=== PATIENT | male | born 1960 | race Caucasian/White ===

== ENCOUNTER → 2016-08-15 | Outpatient (CLI) | payer BC ==
--- NOTE | 2016-08-15 20:50 | CONS ---
DATE OF CONSULTATION: 08/15/2016 This patient is a 56-year-old gentleman who has been evaluated in the sleep center for possible obstructive sleep apnea-hypopnea syndrome. HISTORY OF PRESENT ILLNESS/SLEEP-WAKE EVALUATION: Patient's usual sleep schedule on working days is from around 9:30 p.m. until 5 a.m. and on weekends from around 10:30 p.m. until 6 a.m. No problem with falling asleep. No TV in bedroom. Patient usually sleeps on his back or side position with loud snoring and witnessed episodes of stopped breathing by his . He wakes up from sleep up to 4 times. No history of nocturia. In the morning patient wakes up tired, falling asleep during the day. [place] Sleepiness Scale is in extremely high range at 21. He has a history of irritability during the day. Past medical history is positive for back problems and shoulder pain. PAST SURGICAL HISTORY: None. MEDICATIONS: Ibuprofen over the counter. SOCIAL HISTORY: Positive for smoking for about 20 pack-years; quit 23 years ago. Alcohol consumption previously. History of overusing alcohol; quit about 5 years ago. REVIEW OF SYSTEMS: Multiple awakenings from sleep, significant tiredness and sleepiness during the day. No fevers. No double vision. No recent chest pain. No shortness of breath. No abdominal pain. No bleeding episodes. No blood in urine. No seizure episodes. FAMILY HISTORY: Positive for snoring, cancer. PHYSICAL EXAMINATION: GENERAL: A pleasant gentleman without distress. VITAL SIGNS: BP 133/86, HR 80, RR 16. Height 66 inches. Weight 185.4 pounds. BMI 29.8. Neck 16-1/2 inches in circumference. Temperature 98.7. Oxygen saturation at room air 97%. HEENT: PERRLA, EOMI. Evaluation of oropharynx showed tongue protrudes midline; extremely low position of soft palate. NECK: Supple. No JVD. Thyroid is not palpable. LUNGS: Clear to percussion and to auscultation. Good air exchange. No wheezing or rhonchi. HEART: S1, S2 regular. No murmurs, gallops or rubs. ABDOMEN: Obese. EXTREMITIES: No clubbing or cyanosis. TIMING ADJUSTER: Awake, alert, and oriented x3. Cranial nerves 2 to 7 intact. There is no fasciculation or atrophy noted. No focal deficits observed. IMPRESSION: 1. Snoring, witnessed episodes of stopped breathing during sleep, low position of soft palate, excessive daytime sleepiness; obstructive sleep apnea-hypopnea syndrome. 2. Overweight, close to obesity; body mass index 29.8. 3. Significant sleepiness during the day. [place] Sleepiness Scale increased to 21. 4. Shoulder problems. 5. Back pain. PLAN: 1. Home sleep apnea test for evaluation of patient's breathing during sleep. 2. CPAP/BiPAP titration if sleep study confirms obstructive sleep apnea-hypopnea syndrome. 3. Preferable position during sleep on the side. 4. No driving if patient feels any sleepiness. Patient is aware of civil and criminal liability for unsafe driving. 5. I will see patient for follow-up visit to explain results of the testing and following plan. Thank you very much for referring this patient for consultation. Sincerely, Avery Small MD, PhD, FAASM. Diplomat of [place] [employer], Sleep Medicine Board by [place] [employer] [place] [employer]omass Facilitator of [facility] [place]
== END | disposition home or self-care (01) ==
LOC: SLEEP 16:16
PROVIDERS: ATTEND Internal Medicine
DX: G47.33 Obstructive sleep apnea (adult) (pediatric) (principal); E66.9 Obesity, unspecified; Z68.29 Body mass index [BMI] 29.0-29.9, adult; Z87.891 Personal history of nicotine dependence
CPT/HCPCS: 99211

== ENCOUNTER → 2016-10-24 | Outpatient (CLI) | payer BC ==
--- NOTE | 2016-10-25 10:48 | PN ---
DATE OF SERVICE: 10/24/2016 56 year old gentleman has been followed in the sleep center for treatment of severe obstructive and central sleep apnea/hypopnea syndrome. Recently the patient had home sleep apnea test and CPAP titration and I discussed results of sleep study with the patient in detail. Again, he has severe obstructive sleep apnea/hypopnea syndrome with the present not only obstructive but also significant amount of central events. Totally he has had 265 obstructive apneas, 141 central and mixed apneas and 103 hypopneas during diagnostic sleep study with apnea/hypopnea index 62.5 and oxygen desaturation to 76%. CPAP titration was not very successful. Subsequently, I started the patient on treatment without CPAP with range of pressure from 5 to 18 cm of water which is less than he was titrated during the titration procedure. Highest pressure during titration procedure was 21 cm. The patient described that he is able to use the machine but sometimes is he developing collection of gas in his stomach. According to the patient, after he added chin strap, it was better. Clinically he feels better with usage machine than without machine. He feels more refreshed during the day. I checked his CPAP unit. CPAP pressure is after medical regimen between 5 and 18, REM is 30 minutes. Immediately at the level of 4. Usage is / nights for more than 4 hours average 5.5 hours. Average pressure 15.4 cm water. Leak is 12 L per minute which is acceptable. Apnea/hypopnea index is 8.8, 2.4 related to central apneas and 7.5 to possible obstructive. [place] sleep scale today is 21. Medications: None. PHYSICAL EXAM: GENERAL: A pleasant patient without any distress. VITAL SIGNS: BP 108/81, HR 70, RR 16, height 5 foot 6 inches, weight 173.8, body mass index 27.9. Oxygen saturation on room air 96%. HEENT: PERRLA, EOMI. Evaluation of oropharynx shows extremely low position of soft palate. Tongue protrudes midline. NECK: Supple. No JVD. Thyroid is not palpable. LUNGS: Clear to auscultation and percussion. Good air exchange. No wheezing or rhonchi. HEART: S1, S2 regular. No murmurs, gallops or rubs. ABDOMEN: Soft, nontender. Bowel sounds are preset. No organomegaly appreciated. EXTREMITIES: No clubbing or cyanosis. RECREATION ATTENDANT SUPERVISOR: Awake, alert and oriented times three. Cranial nerves 2 to 7 intact. There is no fasciculation or atrophy noted. No focal deficits observed. IMPRESSION: 1. Severe obstructive and central sleep apnea/hypopnea syndrome improved on CPAP. 2. The patient developed some collection of air in the belly while on treatment with CPAP. 3. No significant periodic limb movements have been documented during the sleep studies. PLAN: 1. I adjusted maximum pressure of CPAP down to 15 cm water. 2. The patient will continue to use equipment every night for the whole night with a chin strap. 3. Sleep hygiene with regular time in bed for at least 8 hours. 4. No driving if patient feels any sleepiness. 5. I will see the patient for follow-up visit in two months. Thank you very much for allowing me to participate in the management of your patient. Sincerely, Avery Small MD, PhD, FAASM Diplomat of [place] [employer]. Sleep Medicine Board by [place] [employer] [place] [employer] Extracorporeal Technician of [facility]
== END ==
LOC: SLEEP 16:04
PROVIDERS: ATTEND Internal Medicine
DX: G47.33 Obstructive sleep apnea (adult) (pediatric) (principal)

== ENCOUNTER → 2016-11-28 | Outpatient (CLI) | payer BC ==
--- NOTE | 2016-11-29 10:00 | PN ---
DATE OF SERVICE: 11/28/2016 An 86-year-old gentleman who has been followed in the Sleep Center for treatment of severe central and obstructive sleep apnea-hypopnea syndrome. Patient developed collection of air in his stomach and during last visit I decreased maximum pressure on automatic machine down to 15 cm of water. Patient preferred that he continues to use his CPAP equipment every night, but he still continued to feel some air in his stomach about 50% of the nights and he does not feel significant improvement during the day. [place] sleepiness scale today is 18. I checked his CPAP unit. It is an automatic regimen with pressure of 10 to 15 cm of water. Humidity 4. Average CPAP pressure 14 cm of water. Apnea-hypopnea index 7.9 but I checked apnea-hypopnea index for the last 7 days and it is in ( ) range sometimes up to around 14. MEDICATIONS: None. During physical exam, the patient is in no distress. VITAL SIGNS: BP 104/63, HR 72, RR 16, weight 171, temp 98.3, oxygen saturation on room air 98%. HEENT: PERRLA, EOMI. Evaluation of oropharynx showed extremely low position of soft palate. NECK: Supple. No JVD. Thyroid is not palpable. LUNGS: Clear to percussion and to auscultation. Good air exchange. No wheezing or rhonchi. HEART: S1, S2 regular. No murmurs, gallops or rubs. ABDOMEN: Soft and nontender. Bowel sounds are present. No organomegaly appreciated. EXTREMITIES: No cyanosis or clubbing. CHILD SPECIALIST: Awake, alert and oriented x3. Cranial nerves II through VII intact. There is no fasciculation or atrophy noted. No focal deficits observed. IMPRESSION: 1. Severe obstructive and central sleep apnea, hypopnea syndrome. Patient continues to have some problems with CPAP related to collection of air in the stomach and he continues to have abnormalities of respiration. 2. History of back pain. 3. Shoulder pain. PLAN: 1. I will decrease pressure down to 13 cm of water maximum. 2. BiPAP titration. 3. Sleep hygiene with regular time in bed for at least 8 hours. 4. No driving if feeling any sleepiness. Thank you very much for allowing me to participate in the management of your patient. Sincerely, Freedom Small MD, PhD, FAASM Diplomat of [place] [employer], Sleep Medicine Board by [place] [employer] [place] [employer] Civil Clerk of [facility] [place]
== END | disposition home or self-care (01) ==
LOC: SLEEP 16:02
PROVIDERS: ATTEND Internal Medicine
DX: G47.33 Obstructive sleep apnea (adult) (pediatric) (principal); M25.519 Pain in unspecified shoulder

== ENCOUNTER 2021-10-17 09:48 | Day surgery (SDC) | payer BC ==
[2021-10-12 15:45] VITALS: BMI 25.8
--- NOTE | 2021-10-17 07:39 | P.GSHP ---
History of Present Illness H&P Date: 10/17/21 CHIEF COMPLAINT: Colon screen HISTORY OF PRESENT ILLNESS: The patient is a 61-year-old male who presents for colon screen. Lower endoscopy was offered for further evaluation and management. PAST MEDICAL HISTORY: Please see list. PAST SURGICAL HISTORY: Please see list. MEDICATIONS: Please see list. ALLERGIES: Please see list. SOCIAL HISTORY: No illicit drug use FAMILY HISTORY: No reports of Crohn disease or ulcerative colitis. REVIEW OF ORGAN SYSTEMS: CONSTITUTIONAL: No reports of fevers or chills. PHYSICAL EXAM: VITAL SIGNS: Stable GENERAL: Well-developed pleasant in no acute distress. HEENT: No scleral icterus. Extraocular movements grossly intact. Moist buccal mucosa. NECK: Supple without lymphadenopathy. CHEST: Unlabored respirations. Equal bilateral excursions. CARDIOVASCULAR: Regular rate and rhythm. Distal 2+ pulses. ABDOMEN: Soft, nontender, nondistended. MUSCULOSKELETAL: No clubbing, cyanosis, or edema. ASSESSMENT: 1. Colon screen. PLAN: 1. Recommend proceeding with a lower endoscopy Past Medical History Past Medical History: No Reported History History of Any Multi-Drug Resistant Organisms: None Reported Additional Past Surgical History / Comment(s): Colonoscopy, tooth extracted. Past Anesthesia/Blood Transfusion Reactions: No Reported Reaction Past Psychological History: No Psychological Hx Reported Smoking Status: Former smoker Past Alcohol Use History: None Reported Additional Past Alcohol Use History / Comment(s): Quit smoking 11/26/1994. Past Drug Use History: None Reported, Marijuana Additional Drug Use History / Comment(s): No Alcohol or Marijuana in 10 yrs. - Past Family History Mother Family Medical History: Cancer Additional Family Medical History / Comment(s): Breast cancer. Medications and Allergies Home Medications Medication Instructions Recorded Confirmed Type Ibuprofen [Motrin] 600 mg PO Q6HR PRN 10/12/21 10/12/21 History Allergies Allergy/AdvReac Type Severity Reaction Status Date / Time No Known Allergies Allergy Verified 10/12/21 15:30
[~2021-10-17 09:48] MED LIST: LACTATED RINGERS 1,000 ML IV SCH
[2021-10-17 10:25] VITALS: TEMP 97.2
[2021-10-17] MEDS ORDERED: PROPOFOL 10 MG/ML 20 ML VIAL IV ONE (10:50)
[2021-10-17] MEDS ORDERED: LIDOCAINE 2% INJ 20 MG/ML (2 ML VIAL) ONE (10:50)
[2021-10-17 11:58] VITALS: BP 114/80; PULSE 58; RESP 18
--- NOTE | 2021-10-19 12:42 | P.PCN ---
Date of Procedure: 10/17/21 Description of Procedure: PREOPERATIVE DIAGNOSIS: Colonoscopy screening. Family history colon cancer POSTOPERATIVE DIAGNOSIS: Colonoscopy screening. Family history colon cancer Diverticulosis, scattered. OPERATION: Colonoscopy to the cecum, ileocecal valve and appendiceal orifice. SURGEON: Maryann Reynolds MD. ANESTHESIA: MAC. INDICATIONS: The patient is a 61-year-old male who presents for colonoscopy screening. Last colonoscopy over 5 years. Benefits and risks were described and informed conse nt was obtained. DESCRIPTION OF PROCEDURE: The patient had undergone Sutab prep. The patient had been brought into the operating room and laid in the left lateral decubitus position. After adequate intravenous sedation, the rectum was examined with 2% lidocaine jelly. No external hemorrhoids were encountered. The prostate was unremarkable. The rectal tone was within normal limits. No lesions were palpated in the rectal vault. An Olympus colonoscope was advanced until the cecum, ileocecal valve and appendiceal orifice were clearly viewed. The prep was excellent. Scattered diverticulosis was encountered. No colonic polyps were found. No evidence of focal colitis was found. Retroflexion of the scope demonstrated grade 1 internal hemorrhoids without active bleeding or inflammation. The colon was desufflated. The patient had tolerated the procedure well. Withdrawal time was over 6 minutes. FINDINGS: Aronchick preparation quality scale 1 (1-5) Internal hemorrhoids, grade 1 No external prolapsed hemorrhoids. No arteriovenous malformations. No adenomatous polyps. No focal colitis. Sigmoid diverticulosis RECOMMENDATIONS: Lower endoscopy in 2026 due to family history Plan - Discharge Summary Discharge Rx Participant: No New Discharge Prescriptions: Continue Ibuprofen [Motrin] 600 mg PO Q6HR PRN PRN Reason: Pain Discharge Medication List Ibuprofen [Motrin] 600 mg PO Q6HR PRN 10/12/21 [History] Follow up Appointment(s)/Referral(s): Maryann Reynolds MD [STAFF PHYSICIAN] - As Needed Patient Instructions/Handouts: *Surgery [facility] - (Anesthesia) Endoscopy Discharge Instructions, Diverticulosis (DC), Diverticulosis Diet (GEN) Activity/Diet/Wound Care/Special Instructions: Repeat colonoscopy in years2026 Discharge Disposition: HOME SELF-CARE
== END 2021-10-17 12:22 | disposition home or self-care (01) ==
LOC: ORWHC2ENDO 09:48
PROVIDERS: ATTEND Surgery Plastic and Reconstructive Surgery
DX: Z12.11 Encounter for screening for malignant neoplasm of colon (principal); Z87.891 Personal history of nicotine dependence; Z80.3 Family history of malignant neoplasm of breast
CPT/HCPCS: 45378; J2704; J2001